=== PATIENT | male | born 1985 ===

== ENCOUNTER 2018-06-24 10:28 | Observation (INO) | payer MEDICAID, OTHER ==
[2018-06-24] MEDS ORDERED: Sodium Chloride 0.9% 1,000 ML IV STA (11:04)
[2018-06-24 11:30] LABS: BASO # 0.02 K/mm3 (0.0-2.0); BASO % 0.1 % (0.0-3.0); EOS # 0.1 (0.0-0.7); EOS % 0.3 % (1.5-5.0); GRAN # 14.16 (1.4-6.5); GRAN % 89.7 % (50.0-68.0); HEMOGLOBIN 17.8 g/dL (14.0-18.0); LYMPH # 0.9 (1.2-3.4); LYMPH % 5.6 % (22.0-35.0); MEAN CELL VOLUME 81.7 fl (80.0-105.0); MEAN CORPUSCULAR HEMOGLOBIN 29.4 pg (25.0-35.0); MEAN PLATELET VOLUME 10.2 fl (7.0-11.0); MONO # 0.7 (0.1-0.6); MONO % 4.3 % (1.0-6.0); RBC 6.06 10^6/uL (3.5-6.1); RED CELL DISTRIBUTION WIDTH 12.8 % (11.5-14.5); WHITE BLOOD COUNT 15.8 10^3/uL (4.5-11.0)
--- NOTE | 2018-06-24 11:32 | ED PDOC ---
Arrival/HPI - General Chief Complaint: Abdominal Pain Time Seen by Provider: 06/24/18 10:31 Historian: Patient - History of Present Illness Narrative History of Present Illness (Text): 06/24/18 11:29 33yo morbidly obese male with no past medical history who present with complaint of sharp constant upper abdominal pain that is worse on his left flank area since this morning. Notes that pain is associated with multiple episodes of nonbloody/bilious vomiting. Reports drinking unknown amount of alcohol yesterday. States he only drinks occasionally. Denies diarrhea, constipation, melena, hematemesis, urinary symptoms, hematuria, fever,chills, sick [id number], travel, back pain, chest pain, diaphoresis, any other complaint. Past Medical History - Provider Review Nursing Documentation Reviewed: Yes - Psychiatric Hx Substance Use: No - Surgical History Other/Comment: Foot sx Family/Social History - Physician Review Nursing Documentation Reviewed: Yes Family/Social History: Unknown Family HX Smoking Status: Never Smoked Hx Alcohol Use: Yes Frequency of alcohol use: Socially Hx Substance Use: No Allergies/Home Meds Allergies/Adverse Reactions: Allergies No Known Allergies Allergy (Verified 06/24/18 11:03) Home Medications: Home Meds Medication Instructions Recorded Confirmed RX: No Known Home Med 06/24/18 06/24/18 Review of Systems - Physician Review All systems were reviewed & negative as marked: Yes - Review of Systems Constitutional: Normal Eyes: Normal ENT: Normal Respiratory: Normal Cardiovascular: Normal Gastrointestinal: Abdominal Pain, Nausea, Vomiting. absent: Constipation, Diarrhea, Hematochezia, Hematemesis Genitourinary Male: Normal Musculoskeletal: Normal Skin: Normal Neurological: Normal Endocrine: Normal Hemo/Lymphatic: Normal Psychiatric: Normal Physical Exam Vital Signs Reviewed: Yes Vital Signs Temp Pulse Resp BP Pulse Ox 06/24/18 10:57 98.5 F 96 H 18 152/92 H 98 Temperature: Afebrile Blood Pressure: Normal Pulse: Regular Respiratory Rate: Normal Appearance: Positive for: Well-Appearing, Non-Toxic, Comfortable Pain Distress: None Mental Status: Positive for: Alert and Oriented X 3 - Systems Exam Head: Present: Atraumatic, Normocephalic Pupils: Present: PERRL Extroacular Muscles: Present: EOMI Conjunctiva: Present: Normal Mouth: Present: Moist Mucous Membranes Neck: Present: Normal Range of Motion Respiratory/Chest: Present: Clear to Auscultation, Good Air Exchange. No: Respiratory Distress, Accessory Muscle Use Cardiovascular: Present: Regular Rate and Rhythm, Normal S1, S2. No: Murmurs Abdomen: Present: Tenderness (Left flank), Distention (Secondary to body habitus), Normal Bowel Sounds, Other (soft). No: Peritoneal Signs, Rebound, Guarding, McBurney's Point Tender, Rovsing's Sign Present Back: Present: Normal Inspection Upper Extremity: Present: Normal Inspection. No: Cyanosis, Edema Lower Extremity: Present: Normal Inspection. No: Edema Neurological: Present: GCS=15, CN II-XII Intact, Speech Normal Skin: Present: Warm, Dry, Normal Color. No: Rashes Psychiatric: Present: Alert, Oriented x 3, Normal Insight, Normal Concentration Medical Decision Making ED Course and Treatment: 06/24/18 11:33 33yo male in Emergency department with complaint of upper abdominal pain with n/v since morning. Labs Abdominal/pelvic CT 1L Ns, Pepcid, Zofran, Toradol Reassess 06/24/18 19:47 PT continued to complain of abdominal pain in Emergency department on re evaluation Leukcytosis with shift was noted on the lab BS was elevated . He denied previous history. It improved slightly with hydration Abdominal /Pelvic CT IMPRESSION: No acute abdominal pelvic pathology. He was admitted for the intractable abdominal pain and new onset diabetes Case was DW Dr. Kathleen and she accepted the pt for admission - RAD Interpretation Radiology Orders: 06/24/18 11:04 ABD & PELVIS W/O PO OR IV CONT [CT] Stat - Medication Orders Current Medication Orders: Sodium Chloride (Sodium Chloride 0.9%) 1,000 mls @ 1,000 mls/hr IV .Q1H STA Stop: 06/24/18 12:03 Discontinued Medications Famotidine (Pepcid) 20 mg IVP STAT STA Stop: 06/24/18 11:05 Ondansetron HCl (Zofran Inj) 4 mg IVP STAT STA Stop: 06/24/18 11:05 Disposition/Present on Arrival - Present on Arrival Any Indicators Present on Arrival: No History of DVT/PE: No History of Uncontrolled Diabetes: No Urinary Catheter: No History of Decub. Ulcer: No History Surgical Site Infection Following: None - Disposition Have Diagnosis and Disposition been Completed?: Yes Diagnosis: Diabetes mellitus, new onset, Intractable abdominal pain Disposition: HOSPITALIZED Disposition Time: 13:40 Patient Plan: Admission Patient Problems: Current Active Problems Problem Status Onset Diabetes mellitus, new onset Acute Intractable abdominal pain Acute Condition: FAIR
[2018-06-24 11:38] LABS: PARTIAL THROMBOPLASTIN TIME 30.1 Seconds (25.1-36.5); PROTHROMBIN TIME 11.5 SECONDS (9.4-12.5)
[2018-06-24 11:49] LABS: ALB/GLOB RATIO 1.3 (1.1-1.8); ALBUMIN 4.7 g/dL (3.0-4.8); ALT/SGPT 49 U/L (7-56); AST/SGOT 30 U/L (17-59); BLOOD UREA NITROGEN 11 mg/dL (7-21); CALCIUM 9.3 mg/dL (8.4-10.5); GFR NON-AFRICAN AMERICAN > 60; LIPASE 83 U/L (23-300)
--- NOTE | 2018-06-24 12:07 | CT ---
Date of service: 06/24/2018 PROCEDURE: CT Abdomen and Pelvis without intravenous contrast HISTORY: abdominal pain COMPARISON: None. TECHNIQUE: Contiguous images were obtained from the domes of the diaphragms to the upper thighs without the administration of intravenous contrast. Oral contrast was not administered. Radiation dose: Total exam DLP = 1265.2 mGy-cm. This CT exam was performed using one or more of the following dose reduction techniques: Automated exposure control, adjustment of the mA and/or kV according to patient size, and/or use of iterative reconstruction technique. FINDINGS: LOWER THORAX: Unremarkable. LIVER: Diffuse hepatic steatosis. No gross lesion or ductal dilatation. GALLBLADDER AND BILE DUCTS: Unremarkable. PANCREAS: Unremarkable. No gross lesion or ductal dilatation. SPLEEN: Unremarkable. ADRENALS: Unremarkable. No mass. KIDNEYS AND URETERS: Unremarkable. No hydronephrosis. No solid mass. VASCULATURE: Unremarkable. No aortic aneurysm. No aortic atherosclerotic calcification or mural plaque present. BOWEL: Unremarkable. No obstruction. No gross mural thickening. APPENDIX: Unremarkable. Normal appendix. PERITONEUM: Small fat containing umbilical hernia. No free fluid. No free air. LYMPH NODES: Unremarkable. No enlarged lymph nodes. BLADDER: Unremarkable. REPRODUCTIVE: Unremarkable. BONES: No acute fracture. OTHER FINDINGS: None. IMPRESSION: No acute abdominal pelvic pathology.
[2018-06-24] MEDS ORDERED: Dextrose 50% SYRINGE Inj (50 ml) IV PRN (14:16)
--- NOTE | 2018-06-24 14:25 | CP.PCM.HP ---
<Nav Cronined - Last Filed: 06/24/18 15:59> History of Present Illness - History of Present Illness History of Present Illness: 33 yo morbidly obese male with no past medical history presents with abdominal pain along with nausea, and non bloody non bilious vomiting. Patient says the pain is sharp and located all over his abdomen and radiated to his left flank. He states he has vomited 5 times today. He also reports drinking unknown amount of alcohol yesterday. States he only drinks occasionally, but when he does drink it is "a lot of beers". Patient also states that he has been having on and off blood in the toilet and the last time he saw blood was 3 days ago. He says the blood appears in the toilet when he eats spicy or fatty foods. Patient also reports some shortness of breath and dizziness. Patient denies chest pain, fever, chills, hematemesis, urinary symptoms, hematuria ,sick contacts or any other complaints at this time. 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 absent: Cough, Chest Congestion, Excessive Mucous Production, Pain with Coughing - Gastrointestinal Gastrointestinal: Abdominal Pain, Nausea, Vomiting, Other. absent: Loose Stools Additional comments: blood in toilet - Neurological Neurological: Dizziness. absent: Disequilibrium, Headaches, Loss of Vision, Syncope, Weakness Past Patient History - Past Social History Smoking Status: Never Smoked - PSYCHIATRIC Hx Substance Use: No - SURGICAL HISTORY Other/Comment: Foot sx Meds Allergies/Adverse Reactions: Allergies Allergy/AdvReac Type Severity Reaction Status Date / Time No Known Allergies Allergy Verified 06/24/18 11:03 Physical Exam - Constitutional Appears: Well, Non-toxic, No Acute Distress Additional comments: obese - Head Exam Head Exam: ATRAUMATIC, NORMAL INSPECTION, NORMOCEPHALIC - Eye Exam Eye Exam: EOMI, Normal appearance - ENT Exam ENT Exam: Mucous Membranes Moist - Respiratory Exam Respiratory Exam: Clear to Auscultation Bilateral, NORMAL BREATHING PATTERN - Cardiovascular Exam Cardiovascular Exam: Tachycardia, +S1, +S2 - GI/Abdominal Exam GI & Abdominal Exam: Normal Bowel Sounds, Soft, Tenderness. absent: Guarding, Rebound, Rigid - Extremities Exam Extremities exam: Positive for: pedal pulses present. Negative for: pedal edema Additional comments: left big toe amputation - Neurological Exam Neurological exam: Alert, CN II-XII Intact, Oriented x3 - Skin Skin Exam: Intact, Normal Color Results - Vital Signs Recent Vital Signs: Last Vital Signs Temp 98.5 F 06/24/18 10:57 Pulse 96 H 06/24/18 10:57 Resp 18 06/24/18 10:57 BP 152/92 H 06/24/18 10:57 Pulse Ox 98 06/24/18 10:57 - Labs Result Diagrams: 06/24/18 11:20 06/24/18 11:20 Labs: Laboratory Results - last 24 hr 06/24/18 06/24/18 06/24/18 11:20 11:20 11:20 WBC 15.8 H RBC 6.06 Hgb 17.8 Hct 49.5 MCV 81.7 MCH 29.4 MCHC 36.0 RDW 12.8 Plt Count 222 MPV 10.2 Gran % 89.7 H Lymph % (Auto) 5.6 L Barbour % (Auto) 4.3 Eos % (Auto) 0.3 L Baso % (Auto) 0.1 Gran # 14.16 H Lymph # (Auto) 0.9 L Barbour # (Auto) 0.7 H Eos # (Auto) 0.1 Baso # (Auto) 0.02 PT 11.5 INR 1.00 APTT 30.1 Sodium 141 Potassium 4.2 Chloride 104 Carbon Dioxide 23 Anion Gap 18 BUN 11 Creatinine 0.7 L Est GFR ( Amer) > 60 Est GFR (Non-Af Amer) > 60 POC Glucose (mg/dL) Random Glucose 322 H* Calcium 9.3 Magnesium 1.7 Total Bilirubin 0.7 AST 30 ALT 49 Alkaline Phosphatase 116 Total Protein 8.5 H Albumin 4.7 Globulin 3.8 Albumin/Globulin Ratio 1.3 Lipase 83 Alcohol, Quantitative 06/24/18 06/24/18 13:25 13:46 WBC RBC Hgb Hct MCV MCH MCHC RDW Plt Count MPV Gran % Lymph % (Auto) Barbour % (Auto) Eos % (Auto) Baso % (Auto) Gran # Lymph # (Auto) Barbour # (Auto) Eos # (Auto) Baso # (Auto) PT INR APTT Sodium Potassium Chloride Carbon Dioxide Anion Gap BUN Creatinine Est GFR ( Amer) Est GFR (Non-Af Amer) POC Glucose (mg/dL) 245 H Random Glucose Calcium Magnesium Total Bilirubin AST ALT Alkaline Phosphatase Total Protein Albumin Globulin Albumin/Globulin Ratio Lipase Alcohol, Quantitative < 10 Assessment & Plan - Assessment and Plan (Free Text) Assessment: 33 yo morbidly obese male with no past medical history presents with abdominal pain along with nausea, and non bloody non bilious vomiting. Plan: 1. Abdominal pain with Nausea and Vomiting -likely secondary to binge alcohol use -Alcohol level <10 -CT Abdomen Pelvis: no acute abdominal pathology -clear liquid diet, advanced as tolerated -zofran PRN -protonix -stool occult blood pending -NS@100 2. Elevated Blood Sugar -blood sugar was 322 -Hemoglobin A1C -lipid panel -TSH -insulin sliding scale high with ACHS GI Prophylaxis: Pepcid DVT Prophylaxis: Heparin <Purnima Kathleen R - Last Filed: 06/24/18 18:57> Results - Vital Signs Recent Vital Signs: Last Vital Signs Temp 98.6 F 06/24/18 16:12 Pulse 111 H 06/24/18 16:12 Resp 19 06/24/18 16:12 BP 113/67 06/24/18 16:12 Pulse Ox 96 06/24/18 16:12 - Labs Result Diagrams: 06/24/18 11:20 06/24/18 11:20 Labs: Laboratory Results - last 24 hr 06/24/18 06/24/18 06/24/18 11:20 11:20 11:20 WBC 15.8 H RBC 6.06 Hgb 17.8 Hct 49.5 MCV 81.7 MCH 29.4 MCHC 36.0 RDW 12.8 Plt Count 222 MPV 10.2 Gran % 89.7 H Lymph % (Auto) 5.6 L Barbour % (Auto) 4.3 Eos % (Auto) 0.3 L Baso % (Auto) 0.1 Gran # 14.16 H Lymph # (Auto) 0.9 L Barbour # (Auto) 0.7 H Eos # (Auto) 0.1 Baso # (Auto) 0.02 PT 11.5 INR 1.00 APTT 30.1 Sodium 141 Potassium 4.2 Chloride 104 Carbon Dioxide 23 Anion Gap 18 BUN 11 Creatinine 0.7 L Est GFR ( Amer) > 60 Est GFR (Non-Af Amer) > 60 POC Glucose (mg/dL) Random Glucose 322 H* Calcium 9.3 Magnesium 1.7 Total Bilirubin 0.7 AST 30 ALT 49 Alkaline Phosphatase 116 Total Protein 8.5 H Albumin 4.7 Globulin 3.8 Albumin/Globulin Ratio 1.3 Triglycerides Cholesterol LDL Cholesterol Direct HDL Cholesterol Lipase 83 TSH 3rd Generation Alcohol, Quantitative 06/24/18 06/24/18 06/24/18 13:25 13:46 14:58 WBC RBC Hgb Hct MCV MCH MCHC RDW Plt Count MPV Gran % Lymph % (Auto) Barbour % (Auto) Eos % (Auto) Baso % (Auto) Gran # Lymph # (Auto) Barbour # (Auto) Eos # (Auto) Baso # (Auto) PT INR APTT Sodium Potassium Chloride Carbon Dioxide Anion Gap BUN Creatinine Est GFR ( Amer) Est GFR (Non-Af Amer) POC Glucose (mg/dL) 245 H Random Glucose Calcium Magnesium Total Bilirubin AST ALT Alkaline Phosphatase Total Protein Albumin Globulin Albumin/Globulin Ratio Triglycerides 119 Cholesterol 202 H LDL Cholesterol Direct 155 H HDL Cholesterol 29 Lipase TSH 3rd Generation Alcohol, Quantitative < 10 06/24/18 06/24/18 14:58 16:22 WBC RBC Hgb Hct MCV MCH MCHC RDW Plt Count MPV Gran % Lymph % (Auto) Barbour % (Auto) Eos % (Auto) Baso % (Auto) Gran # Lymph # (Auto) Barbour # (Auto) Eos # (Auto) Baso # (Auto) PT INR APTT Sodium Potassium Chloride Carbon Dioxide Anion Gap BUN Creatinine Est GFR ( Amer) Est GFR (Non-Af Amer) POC Glucose (mg/dL) 195 H Random Glucose Calcium Magnesium Total Bilirubin AST ALT Alkaline Phosphatase Total Protein Albumin Globulin Albumin/Globulin Ratio Triglycerides Cholesterol LDL Cholesterol Direct HDL Cholesterol Lipase TSH 3rd Generation 1.15 Alcohol, Quantitative Attending/Attestation - Attestation I have personally seen and examined this patient.: Yes I have fully participated in the care of the patient.: Yes I have reviewed all pertinent clinical information: Yes Notes (Text): Patient seen and examined by me with resident at 2:20PM on 06/24/18. Case including HPI, physical exam, and assessment and plan discussed with resident. Agree with above with following additions/corrections. Patient is a 33-year-old Danish-speaking male with no significant past medical history that presents to the emergency room with abdominal pain, nausea, and vomiting after day of binge drinking. Technical Maintenance Specialist Layla # [id number] used for Danish translation. Patient states that he drank "many beers and tequila yesterday." He states that he does this approximately 3 times a month and usually drinks about 24 cans of beer. He states around 6:15 this morning he woke up and started to have nausea, vomiting, and diarrhea. Likely through approximat jose 5-6 times with nonbilious, nonbloody vomitus. Patient states that the diarrhea was watery and nonbloody. However, patient states that he does have a history of blood in his stool that has happened for some time on and off. He states the last time this happened was approximately 3 days ago. States that he has never seen a doctor for this. He should states he also had generalized abdominal pain radiating to his back and hips. The pain was sharp and constant. Patient did not try any medications at home for this. Patient came to the emergency secondary to severity of the pain. Patient still with some nausea but no vomiting. Patient denies any headaches or dizziness. No change in vision. No chest pain or shortness of breath. No fevers or chills. No dysuria. No hematemesis. 12 point review of systems reviewed by me. See above HPI, all other systems negative. Past medical history: Reviewed and patient denies. Medications at home: Patient denies taking any medications Allergies: No known drug allergies Social history: Patient is a former smoker, he smoked for approximately 16 years. He quit 3 years ago. He is unable to quantify how much she smoked, states he only smoked occasionally. Patient drinks approximately a case of 24 beers out 3 times a month. Patient denies any illicit drug use. Family history: Mother is alive and has a history of obesity. Father is alive and has diabetes. Physical exam: General: Awake and alert lying in bed in no acute distress HEENT: Normocephalic, atraumatic. Extraocular muscles intact, pupils equal and reactive, no scleral icterus. Oropharynx is pink. Positive dry mucous membranes. No pharyngeal erythema or exudate appreciated. Neck is supple. Hearing grossly intact. Ears and nose externally unremarkable. Cardiovascular: Regular rhythm.Normal S1 and S2. No murmurs, rubs, or gallops appreciated Pulmonary: Normal respiratory effort. No rhonchi, rales, or wheezing appreciated Gastrointestinal: Soft, nondistended. Nontender. Positive bowel sounds all 4 quadrants. No guarding.Positive obese abdomen. Musculoskeletal: Moves all extremities. No calf tenderness. No edema appreciated. No CVA tenderness. Left great toe status post amputation with well- healed scar. Vascular: 2+ peripheral pulses upper and lower extremities Central nervous system: AAOx 3, CN 2-12 grossly intact. 5 out of 5 muscle strength all extremities. Dermatologic: Skin warm and dry. Assessment and plan: Patient is a 33-year-old Danish-speaking male with no significant past medical history that presents to the emergency room with abdominal pain, nausea, and vomiting after day of binge drinking. 1. Nausea, vomiting, and abdominal pain. Secondary to binge drinking alcohol. Improved now. Placed on IV fluids. Will place on folic acid, MVI, and Thiamine. Place on Zofran as neeed. Placed on protonix. CT abdomen and pelvis per radiologist showed diffuse hepatic steatosis, no acute abdominal pelvic pathology. 2. Alcohol abuse. Patient counseled at length on cessation. Start thiamine, folic acid, and multivitamin. Alcohol level less than 10. We'll monitor for any withdrawal symptoms. LFTS within normal limits. 3. New onset type 2 diabetes. Blood sugar 322 on admission. Pending hemoglobin A1c. We'll place patient on insulin sliding scale for now. Patient to be seen by telehealth nurse educator. Counseled at length on diet and exercise. Monitor Accu-Cheks. Patient also advised that he will need yearly foot and eye exams. Follow-up lipid panel. 4. Leukocytosis. Likely reactive. Follow up repeat labs in a.m. Patient is afebrile. 5. GI/DVT prophylaxis. Protonix/heparin 6. Patient is a full code Case was discussed in detail with the patient regarding diagnosis and treatment plan. All questions answered.
[2018-06-24] MEDS: Sodium Chloride 0.9% 1,000 ML IV SCH (14:50)
--- NOTE | 2018-06-24 15:04 | RAD ---
Date of service: 06/24/2018 HISTORY: admission COMPARISON: No prior. FINDINGS: LUNGS: No active pulmonary disease. PLEURA: No significant pleural effusion identified, no pneumothorax apparent. CARDIOVASCULAR: No aortic atherosclerotic calcification present. Normal cardiac size. No pulmonary vascular congestion. OSSEOUS STRUCTURES: No significant abnormalities. VISUALIZED UPPER ABDOMEN: Normal. OTHER FINDINGS: None. IMPRESSION: No active disease.
[2018-06-24 15:17] LABS: HDL CHOLESTEROL 29 mg/dL (29-60)
[2018-06-24 15:28] LABS: LDL CHOLESTEROL 155 mg/dL (0-129)
[2018-06-24 15:42] VITALS: BMI 50.2
[2018-06-24] MEDS ORDERED: Influenza Vaccine 60 mcg/0.5 mL SYR (4YR UP) IM ONE (15:42)
[2018-06-24] MEDS ORDERED: Pneumococcal 23-Valent Vaccine IM ONE (15:42)
[2018-06-24] MEDS: Insulin Lispro (HUMAlog) HIGH Coverage SC SCH ×2 (17:19→21:26)
[2018-06-25] MEDS: Sodium Chloride 0.9% 1,000 ML IV SCH (05:12)
[2018-06-25] MEDS ORDERED: Pantoprazole 40 mg EC Tab PO SCH (06:00)
[2018-06-25 06:51] LABS: ALB/GLOB RATIO 1.1 (1.1-1.8); ALBUMIN 3.5 g/dL (3.0-4.8); ALT/SGPT 46 U/L (7-56); AST/SGOT 34 U/L (17-59); BLOOD UREA NITROGEN 14 mg/dL (7-21); CALCIUM 8.2 mg/dL (8.4-10.5); GFR NON-AFRICAN AMERICAN > 60
[2018-06-25 07:03] LABS: MEAN CORPUSCULAR HEMOGLOBIN 28.5 pg (25.0-35.0); MEAN PLATELET VOLUME 10.7 fl (7.0-11.0); RBC 5.05 10^6/uL (3.5-6.1); RED CELL DISTRIBUTION WIDTH 12.9 % (11.5-14.5); WHITE BLOOD COUNT 7.4 10^3/uL (4.5-11.0)
[2018-06-25 07:10] VITALS: BP 124/85; PULSE 84; RESP 20; TEMP 97.8; O2SAT 97
[2018-06-25 07:14] LABS: HEMOGLOBIN 14.4 g/dL (14.0-18.0)
[2018-06-25] MEDS ORDERED: Multivitamin Therapeutic Tab PO SCH (08:00)
[2018-06-25] MEDS ORDERED: Potassium Chloride 40 mEq/30 ml LIQ UD PO ONE (08:06)
[2018-06-25] MEDS: Insulin Lispro (HUMAlog) HIGH Coverage SC SCH (08:33)
--- NOTE | 2018-06-25 13:01 | CP.PCM.DIS ---
Provider - Provider Date of Admission: 06/24/18 13:44 Attending physician: Purnima Kathleen DO Primary care physician: NO PRIMARY CARE PROVIDER Consults: 06/24/18 16:07 Diabetic Education Referral Routine Comment: Protocol Physician Instructions: Reason For Exam: Newly dx DM Time Spent in preparation of Discharge (in minutes): 45 Diagnosis - Discharge Diagnosis (1) Diabetes mellitus, new onset Status: Acute (2) Intractable abdominal pain Status: Resolved Hospital Course - Lab Results Lab Results: Most Recent Lab Values WBC 7.4 10^3/uL (4.5-11.0) D 06/25/18 06:15 RBC 5.05 10^6/uL (3.5-6.1) 06/25/18 06:15 Hgb 14.4 g/dL (14.0-18.0) D 06/25/18 06:15 Hct 42.4 % (42.0-52.0) 06/25/18 06:15 MCV 84.0 fl (80.0-105.0) 06/25/18 06:15 MCH 28.5 pg (25.0-35.0) 06/25/18 06:15 MCHC 34.0 g/dl (31.0-37.0) 06/25/18 06:15 RDW 12.9 % (11.5-14.5) 06/25/18 06:15 Plt Count 181 10^3/uL (120.0-450.0) 06/25/18 06:15 MPV 10.7 fl (7.0-11.0) 06/25/18 06:15 Gran % 89.7 % (50.0-68.0) H 06/24/18 11:20 Lymph % (Auto) 5.6 % (22.0-35.0) L 06/24/18 11:20 [place] % (Auto) 4.3 % (1.0-6.0) 06/24/18 11:20 Eos % (Auto) 0.3 % (1.5-5.0) L 06/24/18 11:20 Baso % (Auto) 0.1 % (0.0-3.0) 06/24/18 11:20 Gran # 14.16 (1.4-6.5) H 06/24/18 11:20 Lymph # (Auto) 0.9 (1.2-3.4) L 06/24/18 11:20 [place] # (Auto) 0.7 (0.1-0.6) H 06/24/18 11:20 Eos # (Auto) 0.1 (0.0-0.7) 06/24/18 11:20 Baso # (Auto) 0.02 K/mm3 (0.0-2.0) 06/24/18 11:20 PT 11.5 SECONDS (9.4-12.5) 06/24/18 11:20 INR 1.00 06/24/18 11:20 APTT 30.1 Seconds (25.1-36.5) 06/24/18 11:20 Sodium 140 mmol/L (132-148) 06/25/18 06:15 Potassium 3.3 mmol/L (3.6-5.0) L 06/25/18 06:15 Chloride 105 mmol/L (98-107) 06/25/18 06:15 Carbon Dioxide 28 mmol/L (21-33) 06/25/18 06:15 Anion Gap 10 (10-20) 06/25/18 06:15 BUN 14 mg/dL (7-21) 06/25/18 06:15 Creatinine 0.8 mg/dl (0.8-1.5) 06/25/18 06:15 Est GFR ( Amer) > 60 06/25/18 06:15 Est GFR (Non-Af Amer) > 60 06/25/18 06:15 POC Glucose (mg/dL) 225 mg/dL (65-110) H 06/25/18 11:09 Random Glucose 218 mg/dL (70-110) H 06/25/18 06:15 Hemoglobin A1c 10.1 % (4.2-6.5) H 06/24/18 11:20 Calcium 8.2 mg/dL (8.4-10.5) L 06/25/18 06:15 Magnesium 1.7 mg/dL (1.7-2.2) 06/24/18 11:20 Total Bilirubin 1.0 mg/dL (0.2-1.3) 06/25/18 06:15 AST 34 U/L (17-59) 06/25/18 06:15 ALT 46 U/L (7-56) 06/25/18 06:15 Alkaline Phosphatase 77 U/L (38-126) 06/25/18 06:15 Total Protein 6.6 g/dL (5.8-8.3) 06/25/18 06:15 Albumin 3.5 g/dL (3.0-4.8) 06/25/18 06:15 Globulin 3.1 gm/dL 06/25/18 06:15 Albumin/Globulin Ratio 1.1 (1.1-1.8) 06/25/18 06:15 Triglycerides 119 mg/dL (35-160) 06/24/18 14:58 Cholesterol 202 mg/dL (130-200) H 06/24/18 14:58 LDL Cholesterol Direct 155 mg/dL (0-129) H 06/24/18 14:58 HDL Cholesterol 29 mg/dL (29-60) 06/24/18 14:58 Lipase 83 U/L (23-300) 06/24/18 11:20 TSH 3rd Generation 1.15 mIU/mL (0.46-4.68) 06/24/18 14:58 Stool Occult Blood Negative (NEGATIVE) 06/24/18 22:03 Alcohol, Quantitative < 10 mg/dL (0-10) 06/24/18 13:46 - Hospital Course Hospital Course: HPI at time of admission: "33 yo morbidly obese male with no past medical history presents with abdominal pain along with nausea, and non bloody non bilious vomiting. Patient says the pain is sharp and located all over his abdomen and radiated to his left flank. He states he has vomited 5 times today. He also reports drinking unknown amount of alcohol yesterday. States he only drinks occasionally, but when he does drink it is "a lot of beers". Patient also states that he has been having on and off blood in the toilet and the last time he saw blood was 3 days ago. He says the blood appears in the toilet when he eats spicy or fatty foods. Patient also reports some shortness of breath and dizziness. Patient denies chest pain, fever, chills, hematemesis, urinary symptoms, hematuria ,sick contacts or any other complaints at this time." Hospital Course Pt was admitted for intractable abd pain with n/v likely 2/2 to binge alcohol drinking. EtOH level <10. CT abd pelvis demonstrated no acute abd pathology. Pt was slowly advanced to full diet as tolerated and was able to tolerate PO diet prior to d/c. Pt was found to have elevated A1c of 10.1 on admission. Was discharged on Metformin bid for treatment of type II DM. Given appt to f/u at [facility] on 07/03/17 at 4:00 pm to establish primary care and for hospital discharge follow-up. Advised to avoid EtOH use and binge drinking. For further details of hospital admission, please refer to hospital EMR. Discharge Exam - Head Exam Head Exam: ATRAUMATIC, NORMAL INSPECTION, NORMOCEPHALIC - Eye Exam Eye Exam: EOMI, Normal appearance, PERRL - ENT Exam ENT Exam: Mucous Membranes Moist - Respiratory Exam Respiratory Exam: Clear to PA & Lateral, NORMAL BREATHING PATTERN, UNREMARKABLE. absent: Rales, Rhonchi, Wheezes - Cardiovascular Exam Cardiovascular Exam: REGULAR RHYTHM, +S1, +S2. absent: Gallop, Rubs, Systolic Murmur - GI/Abdominal Exam GI & Abdominal Exam: Normal Bowel Sounds, Soft, Unremarkable. absent: Tenderness - Extremities Exam Extremities exam: full ROM, normal capillary refill, normal inspection, pedal pulses present - Neurological Exam Neurological exam: Alert, CN II-XII Intact, Normal Gait, Oriented x3, Reflexes Normal - Psychiatric Exam Psychiatric exam: Normal Affect, Normal Mood - Skin Skin Exam: Dry, Intact, Normal Color, Warm Discharge Plan - Discharge Medications Prescriptions: MetFORMIN [glucoPHAGE] 1,000 mg PO BID #28 tab - Follow Up Plan Condition: FAIR Disposition: HOME/ ROUTINE Instructions: Diabetes Type 2 (DC), Counting Carbs If You Do Not Use Insulin, The ABCs of Diabetes, Diabetic Meal Planning Additional Instructions: Please follow up with [facility] on July 03 at 4PM Recommend to diet and exercise. Weight loss will improve your blood sugars. Please STOP drinking alcohol. Your new medication is for diabetes: Metformin 1000mg TWICE PER DAY If you are not eating do not take your metformin dose. If your symptoms return, please go to the nearest emergency department. Por favor, va a la clinica de [facility] a [facility] ([facility] [place] a las cuatro en la tarde para la missy. Recomenda a la comida de buen cesar y ejercicios. Perdida de peso puede ayudar con azucar de nafisa. Por favor cerra beber alcohol. La medicina nueva es para diabetes. "Metformin 1000 mg dos veces a jordy" Satinder no come sukumar el jordy, no angel la medicina de Metformin. Satinder tiene symptomas, va a la departamento de emergencia de cerca. Referrals: [facility] [place] [facility] [place] PCP,NO [Primary Care Provider] -
== END 2018-06-25 16:15 | disposition home or self-care (01) ==
LOC: ED 10:28 → ERH 13:44 → 3RNO 15:20
PROVIDERS: ADMIT Hospitalist; ATTEND Hospitalist
DX: E11.9 Type 2 diabetes mellitus without complications (principal); E66.01 Morbid (severe) obesity due to excess calories; D72.829 Elevated white blood cell count, unspecified; K76.0 Fatty (change of) liver, not elsewhere classified; F10.10 Alcohol abuse, uncomplicated; R10.9 Unspecified abdominal pain; R11.2 Nausea with vomiting, unspecified; R40.2412 Glasgow coma scale score 13-15, at arrival to emergency department; Z87.891 Personal history of nicotine dependence; Z89.412 Acquired absence of left great toe; Z83.3 Family history of diabetes mellitus; Z68.43 Body mass index [BMI] 50.0-59.9, adult
CPT/HCPCS: 36415; 71045; 74176; 80053; 80061; 82948; 83036; 83690; 83735; 84443; 85025; 85027; 85610; 85730; 96372; 96374; 96375; 99284; G0328; G0378; G0480; J1644; J1885; J2405; J3480; J7030